=== PATIENT | female | born 1965 | race Two or more races ===

== ENCOUNTER 2017-10-31 09:08 | Outpatient (CLI) | payer OTHER | END 2017-10-31 09:47 | disposition home or self-care (01) | LOC: SONOGRAMA 09:08 | DX: E04.2 Nontoxic multinodular goiter (principal) ==

== ENCOUNTER 2019-07-23 09:14 | Outpatient (CLI) | payer OTHER | END 2019-07-23 11:52 | disposition home or self-care (01) | LOC: SONOGRAMA 09:14 | DX: E04.1 Nontoxic single thyroid nodule (principal) ==

== ENCOUNTER 2020-09-18 08:33 | Outpatient (CLI) | payer OTHER | END 2020-09-18 08:36 | disposition home or self-care (01) | LOC: SONOGRAMA 08:33 | PROVIDERS: ATTEND Pathology Anatomic Pathology & Clinical Pathology | DX: E04.2 Nontoxic multinodular goiter (principal) ==